=== PATIENT | female | born 1960 | race African-American/Black ===

== ENCOUNTER → 2018-02-03 | Outpatient (CLI) | payer OTHER ==
--- NOTE | 2018-02-03 14:19 | RAD ---
DATE: 02/13/2018 EXAM: DIGITAL SCREEN BILAT W/CAD HISTORY: Routine screening COMPARISON: 12/12/2010 This study was interpreted with the benefit of Computerized Aided Detection (CAD). The breast parenchyma shows scattered fibroglandular densities. Breast parenchyma level B. FINDINGS: 2 small nodules are seen anteriorly in the left breast, best delineated on the oblique view. These were not clearly visualized on the previous study, however, the fibroglandular pattern is generally somewhat nodular in character. No new or enlarging right breast densities are seen. Benign type calcifications are present. No suspicious microcalcifications have developed. IMPRESSION: Two small left breast nodules are evident. Diagnostic mammograms to include 3-D tomosynthesis imaging is suggested for localization and characterization, probably followed by left breast ultrasound. BI-RADS CATEGORY: 0 INCOMPLETE: NEEDS ADDITIONAL IMAGING EVALUATION AND/OR PRIOR MAMMOGRAMS FOR COMPARISON. RECOMMENDED FOLLOW-UP: ADD ADDITIONAL IMAGING PQRS compliance statement: Patient information was entered into a reminder system with a target due date for the next mammogram. Mammography is a sensitive method for finding small breast cancers, but it does not detect them all and is not a substitute for careful clinical examination. A negative mammogram does not negate a clinically suspicious finding and should not result in delay in biopsying a clinically suspicious abnormality. "Our facility is accredited by the [employer] Mammography [employer]."
== END | disposition home or self-care (01) ==
LOC: MAMMO 12:55
DX: Z12.31 Encounter for screening mammogram for malignant neoplasm of breast (principal)
CPT/HCPCS: 77067

== ENCOUNTER → 2018-02-07 | Outpatient (CLI) | payer OTHER ==
--- NOTE | 2018-02-07 11:44 | RAD ---
DATE: 02/07/2018 EXAM: MAMMO LYNETTE SAMANTHAG LT, BREAST LEFT HISTORY: Suspicious screening study COMPARISON: 02/03/2018 This study was interpreted with the benefit of Computerized Aided Detection (CAD). The breast parenchyma shows scattered fibroglandular densities. Breast parenchyma level B. FINDINGS: 3-D tomosynthesis imaging of the left breast was performed in CC and MLO projections. There are scattered fibroglandular densities in a somewhat heterogeneous, nodular pattern. The following discrete nodules were identified: There is an 8 mm smooth nodule at the 12:00 location anteriorly best seen on CC lynette image #42. It lies approximately 2-3 cm above the nipple. An opacity seen in the inferior retroareolar region on the oblique view of the screening study is seen on the tomograms to be due to a mildly enlarged, tortuous duct. There is also a 5 mm nodule in the upper outer quadrant of the left breast approximate 6 cm from the nipple. It is best seen in CC lynette image #40. Left breast ultrasound, 02/07/2018: A targeted ultrasound exam was performed in the areas of concern noted on the mammogram. At the 12:00 location approximately 3 cm from the nipple there is a smooth anechoic structure. It demonstrates posterior acoustic enhancement. The features are compatible with a cyst. It measures 6 mm in greatest diameter. At the 2:00 location approximately 6 cm in the nipple there is a 5 x 4 x 3 mm hypoechoic nodule. It is slightly lobulated. Its margins are smooth. It is wider than tall. No internal color flow is seen. This is probably a small fibroadenoma or complicated cyst. At the 6:00 retroareolar location a dilated duct is seen corresponding to the mammographic abnormality. There is low level internal echogenicity with internal color flow compatible with a small intraluminal mass. This measures 3.7 mm in greatest width. IMPRESSION: 1. Small simple cyst at the 12:00 location. 2. Probably benign nodule at the 2:00 location as described above. Sonographic surveillance beginning in 6 months is suggested. 3. Mildly dilated retroareolar duct at the 6:00 location which contains a small hypoechoic nodule with internal color flow. An intraductal papilloma is suspected. Malignancy cannot be excluded. Ultrasound-guided or excisional biopsy is suggested. Note: The textile technologist notified the patient of the recommendation for biopsy, at the time of exam. The patient will follow-up with the ordering provider. BI-RADS CATEGORY: 4 SUSPICIOUS ABNORMALITY- BIOPSY SHOULD BE CONSIDERED RECOMMENDED FOLLOW-UP: BIO BIOPSY RECOMMENDED PQRS compliance statement: Patient information was entered into a reminder system with a target due date for the next mammogram. Mammography is a sensitive method for finding small breast cancers, but it does not detect them all and is not a substitute for careful clinical examination. A negative mammogram does not negate a clinically suspicious finding and should not result in delay in biopsying a clinically suspicious abnormality. "Our facility is accredited by the [employer] Mammography [employer]."
== END | disposition home or self-care (01) ==
LOC: MAMMO 10:00
DX: N63.42 Unspecified lump in left breast, subareolar (principal); N60.02 Solitary cyst of left breast
CPT/HCPCS: 76641; 77065; G0279; 77061